=== PATIENT | female | born 1990 ===

== ENCOUNTER 2020-06-12 01:20 | Inpatient (IN) | payer MEDICAID ==
[2020-06-12] MEDS ORDERED: Morphine PF 10 MG/10 ML SDV ONE (03:06)
[2020-06-12] MEDS ORDERED: Oxytocin 10 Units/1 ML SDV ONE (03:08)
--- NOTE | 2020-06-12 03:10 | US ---
INDICATION: Vaginal bleeding TECHNIQUE: Ultrasound OB pelvis transabdominal. Real-time suazo-scale imaging of the fetus was performed. COMPARISON: 05/12/2020 FINDINGS: Sonographic imaging demonstrates a single intrauterine gestation. heart rate: 149 bpm Orientation: Cephalic Placenta: Fundal without evidence of placenta previa or abruption on submitted images Amniotic fluid: Subjectively normal with single deepest pocket (SDP) free 0.5 cm Cervix: 4.8 cm in length The composite ultrasound gestational age is calculated at 37 weeks, 1 day. The estimated weight is 3163 +/-462 grams which lies at the 64%. There is adequate diastolic blood flow within the umbilical artery. Biparietal diameter: 9.1 cm Head circumference: 32.6 cm Abdominal circumference: 33 point cm Femur length: 7.5 cm IMPRESSION: 1. Single viable intrauterine with an estimated gestational age of 37 weeks, 1 day. Dictated by Ghulam Cordero MD @ 06/12/2020 3:09:37 AM Dictated by: Ghulam Cordero MD @ 06/12/2020 03:09:43 (Electronically Signed)
[2020-06-12] MEDS ORDERED: Citric Acid/Sodium Citrate Solution 30 ML Cup PO ONE (03:14)
[2020-06-12] MEDS ORDERED: Sodium Chloride 0.9% 2.5 ML Syringe FLUSH PRN (03:14)
[2020-06-12] MEDS ORDERED: Sodium Chloride 0.9% 10 ML Syringe FLUSH PRN (03:14)
[2020-06-12] MEDS ORDERED: Sodium Chloride 0.9% 10 ML SDV IV PRN (03:14)
[2020-06-12] MEDS ORDERED: Oxytocin/0.9 % Sodium Chloride 30 UNIT/500 ML BAG IV SCH (03:15)
[2020-06-12] MEDS ORDERED: Lactated Ringers 1,000 ML IV SCH ×2 (03:15→03:30)
--- NOTE | 2020-06-12 03:19 | PCM.LDHP ---
L&D History of Present Illness - General Date of Service: 06/12/20 Admit Problem/Dx: Patient Status Order with Admit Dx/Problem 06/12/20 01:30 Patient Status [ADT] Routine Admission Diagnosis/Problem Admission Diagnosis/Problem Source of Information: Patient History Limitations: Reports: No Limitations - History of Present Illness Improves with: Reports: None Worsens with: Reports: None Associated Symptoms: Reports: N - Related Data Allergies/Adverse Reactions: Allergies Allergy/AdvReac Type Severity Reaction Status Date / Time latex Allergy Rash Verified 05/31/20 22:45 Lactated Ringers Allergy Anaphylactic Uncoded 05/10/20 07:42 Shock Past Medical History HEENT History: Reports: None Cardiovascular History: Reports: None Respiratory History: Reports: None Gastrointestinal History: Reports: None Genitourinary History: Reports: None 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: 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: Other OB/BYN History: Patient states she has PCOS Musculoskeletal History: Reports: None Neurological History: Reports: None Psychiatric History: Reports: None Endocrine/Metabolic History: Reports: None Hematologic History: Reports: None Immunologic History: Reports: None Oncologic (Cancer) History: Reports: None Dermatologic History: Reports: None - Infectious Disease History Infectious Disease History: Reports: None - Past Surgical History Head Surgeries/Procedures: Reports: None HEENT Surgical History: Reports: None Other HEENT Surgeries/Procedures: Pt states she has chronic tonsilitis Cardiovascular Surgical History: Reports: None Respiratory Surgical History: Reports: None GI Surgical History: Reports: None Endocrine Surgical History: Reports: None Neurological Surgical History: Reports: None Musculoskeletal Surgical History: Reports: None Oncologic Surgical History: Reports: None Dermatological Surgical History: Reports: None Social & Family History - Family History : Reports: Other (See Below) Other Family History: Mother had kidney transplant OBGYN: Reports: Endocrine/Metabolic: Reports: Diabetes, Type I - Tobacco Use Tobacco Use Status *Q: Never Tobacco User Second Hand Smoke Exposure: No - Caffeine Use Caffeine Use: Reports: Soda, Tea - Recreational Drug Use Recreational Drug Use: No H&P Review of Systems - Review of Systems: Review Of Systems: See Below General: Reports: No Symptoms HEENT: Reports: No Symptoms Pulmonary: Reports: No Symptoms Cardiovascular: Reports: No Symptoms Gastrointestinal: Reports: No Symptoms Genitourinary: Reports: No Symptoms Musculoskeletal: Reports: No Symptoms Skin: Reports: No Symptoms Psychiatric: Reports: No Symptoms Neurological: Reports: No Symptoms Hematologic/Lymphatic: Reports: No Symptoms Immunologic: Reports: No Symptoms L&D Exam - Exam Exam: See Below - Vital Signs Weight: 203 kg - OB Specific Contraction Intensity: Moderate Movement: Active Heart Tones: Present Presentation: Vertex - Mahmood Score Mahmood Score Cervix Position: Midposition Mahmood Score Consistency: Soft Mahmood Score Effacement: 31-50% Mahmood Score Dilation: 1-2 cm Mahmood Score 's Station: -3 Mahmood Score Total: 5 - Exam General: Alert, Oriented HEENT: PERRLA, Conjunctiva Clear, EACs Clear, EOMI, Hearing Intact, Mucosa Moist & [place], Nares Patent, Normal Nasal Septum, Posterior Pharynx Clear, TMs Clear Neck: Supple, Trachea Midline Lungs: Clear to Auscultation, Normal Respiratory Effort Cardiovascular: Regular Rate, Regular Rhythm GI/Abdominal Exam: Normal Bowel Sounds, Soft, Non-Tender, No Organomegaly, No Distention, No Abnormal Bruit, No Mass, Pelvis Stable Rectal Exam: Normal Exam, Normal Rectal Tone Genitourinary: Normal external exam, Normal bimanual exam, Normal speculum exam Back Exam: Normal Inspection, Full Range of Motion Extremities: Normal Inspection, Normal Range of Motion, Non-Tender, No Pedal Edema, Normal Capillary Refill Skin: Warm, Dry, Intact Neurological: Cranial Nerves Intact, Reflexes Equal Bilateral Psychiatric: Alert, Normal Affect, Normal Mood - Patient Data Lab Results Last 24 hrs: Laboratory Results - last 24 hr 06/12/20 06/12/20 Range/Units 01:17 01:17 WBC 16.73 H (4.0-11.0) K/uL RBC 4.63 (4.30-5.90) M/uL Hgb 14.0 (12.0-16.0) g/dL Hct 41.0 (36.0-46.0) % MCV 88.6 (80.0-98.0) fL MCH 30.2 (27.0-32.0) pg MCHC 34.1 (31.0-37.0) g/dL RDW Std Deviation 45.7 (28.0-62.0) fl RDW Coeff of Jayme 14 (11.0-15.0) % Plt Count 268 (150-400) K/uL MPV 12.60 H (7.40-12.00) fL Nucleated RBC % 0.0 /100WBC Nucleated RBCs # 0 K/uL Blood Type O POSITIVE Antibody Screen NEGATIVE Result Diagrams: 06/12/20 01:17 Problem List Initiated/Reviewed/Updated: Yes Orders Last 24hrs: Active Orders 24 hr Category Date Time Status Patient Status [ADT] Routine ADT 06/12/20 01:30 Active Non Stress Test [RC] PER UNIT ROUTINE Care 06/12/20 01:30 Active Up ad Lainey [RC] ASDIRECTED Care 06/12/20 01:30 Active Vaginal Exam [RC] Click to Edit Care 06/12/20 01:30 Active Vital Signs [RC] PER UNIT ROUTINE Care 06/12/20 01:30 Active CORONAVIRUS COVID-19 DOMINIQUE [MOLEC] Stat Lab 06/12/20 01:42 Ordered RPR (SYPHILIS SERO) W/ RFLX [REF] Stat Lab 06/12/20 01:42 Ordered Resuscitation Status Routine Resus Stat 06/12/20 01:30 Ordered Assessment/Plan Comment:: IUP36+6 P0000 #rd trimester bleeding. Clinicaly consistent with abruption of the Placenta. will do C/section.
[2020-06-12] MEDS ORDERED: Methylergonovine 0.2 MG/1 ML Amp IM PRN (03:21)
[2020-06-12] MEDS ORDERED: Oxytocin 10 Units/1 ML SDV IM PRN (03:21)
[2020-06-12] MEDS ORDERED: Misoprostol 200 MCG Tab RECTAL PRN (03:21)
[2020-06-12] MEDS ORDERED: Lanolin 100% Cream 7 GM Tube TOP PRN (03:21)
[2020-06-12] MEDS ORDERED: Ondansetron 4 MG/2 ML SDV IVPUSH PRN (03:21)
[2020-06-12] MEDS ORDERED: diphenhydrAMINE 50 MG/ML SDV IVPUSH PRN (03:21)
[2020-06-12] MEDS ORDERED: Bisacodyl 10 MG Supp RECTAL PRN (03:21)
[2020-06-12] MEDS ORDERED: Tranexamic Acid 1,000 MG in Sodium Chloride 0.9% 100 ML IV PRN (03:21)
[2020-06-12] MEDS ORDERED: Sodium Chloride 0.9% 1,000 ML IV ONE (03:27)
[2020-06-12] MEDS ORDERED: Ondansetron 4 MG/2 ML SDV ONE (03:27)
--- NOTE | 2020-06-12 04:10 | PCM.PREANE ---
Preanesthetic Assessment - Anesthesia/Transfusion/Family Hx Anesthesia History: No Prior Anesthesia Family History of Anesthesia Reaction: No Transfusion History: No Prior Transfusion(s) - Review of Systems General: No Symptoms Pulmonary: No Symptoms Cardiovascular: No Symptoms Gastrointestinal: No Symptoms Neurological: No Symptoms - Physical Assessment NPO Status Date: 06/12/20 Height: 5 ft 6 in Weight: 203 kg ASA Class: 3E Mental Status: Alert & Oriented x3 Airway Class: Mallampati = 2 Dentition: Reports: Normal Dentition ROM/Head Extension: Full Lungs: Clear to Auscultation, Normal Respiratory Effort Cardiovascular: Regular Rate, Regular Rhythm - Lab Values: Laboratory Last Values WBC 16.73 K/uL (4.0-11.0) H 06/12/20 01:17 RBC 4.63 M/uL (4.30-5.90) 06/12/20 01:17 Hgb 14.0 g/dL (12.0-16.0) 06/12/20 01:17 Hct 41.0 % (36.0-46.0) 06/12/20 01:17 MCV 88.6 fL (80.0-98.0) 06/12/20 01:17 MCH 30.2 pg (27.0-32.0) 06/12/20 01:17 MCHC 34.1 g/dL (31.0-37.0) 06/12/20 01:17 RDW Std Deviation 45.7 fl (28.0-62.0) 06/12/20 01:17 RDW Coeff of Jayme 14 % (11.0-15.0) 06/12/20 01:17 Plt Count 268 K/uL (150-400) 06/12/20 01:17 MPV 12.60 fL (7.40-12.00) H 06/12/20 01:17 Nucleated RBC % 0.0 /100WBC 06/12/20 01:17 Nucleated RBCs # 0 K/uL 06/12/20 01:17 SARS-CoV-2 RNA (DOMINIQUE) NEGATIVE (NEGATIVE) 06/12/20 01:40 Blood Type O POSITIVE 06/12/20 01:17 Antibody Screen NEGATIVE 06/12/20 01:17 - Allergies Allergies/Adverse Reactions: Allergies Allergy/AdvReac Type Severity Reaction Status Date / Time latex Allergy Rash Verified 05/31/20 22:45 Lactated Ringers Allergy Anaphylactic Uncoded 05/10/20 07:42 Shock - Blood Blood Available: Yes - Anesthesia Plan Pre-Op Medication Ordered: None - Acknowledgements Anesthesia Type Planned: Spinal Pt an Appropriate Candidate for the Planned Anesthesia: Yes Alternatives and Risks of Anesthesia Discussed w Pt/Guardian: Yes Pt/Guardian Understands and Agrees with Anesthesia Plan: Yes Additional Comments: hiddenclinical dx of abruption following fall earlier today. 37 weeks, no distress. 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: Other OB/BYN History: Patient states she has PCOS Musculoskeletal History: Reports: None Neurological History: Reports: None Psychiatric History: Reports: None Endocrine/Metabolic History: Reports: None Hematologic History: Reports: None Immunologic History: Reports: None Oncologic (Cancer) History: Reports: None Dermatologic History: Reports: None - Infectious Disease History Infectious Disease History: Reports: None - Past Surgical History Head Surgeries/Procedures: Reports: None HEENT Surgical History: Reports: None Other HEENT Surgeries/Procedures: Pt states she has chronic tonsilitis Cardiovascular Surgical History: Reports: None Respiratory Surgical History: Reports: None GI Surgical History: Reports: None Endocrine Surgical History: Reports: None Neurological Surgical History: Reports: None Musculoskeletal Surgical History: Reports: None Oncologic Surgical History: Reports: None Dermatological Surgical History: Reports: None - SUBSTANCE USE Tobacco Use Status *Q: Never Tobacco User Tobacco Use Within Last Twelve Months: No Second Hand Smoke Exposure: No Recreational Drug Use History: No - CURRENT (IN HOUSE) MEDS Current Meds: Current Medications Bisacodyl (Dulcolax) 10 mg RECTAL ONETIME PRN PRN Reason: Constipation Diphenhydramine HCl (Benadryl) 25 mg IVPUSH Q6H PRN PRN Reason: Itching or Nausea Docusate Sodium (Colace) 100 mg PO BID [facility] Emollient Ointment (Lansinoh Hpa) 0 gm TOP ASDIRECTED PRN PRN Reason: Sore Nipples Oxytocin/Sodium Chloride (Oxytocin 30 Unit/500 Ml-Ns) 30 unit in 500 mls @ 250 mls/hr IV TITRATE [facility] Tranexamic Acid 1,000 mg/ (Sodium Chloride) 110 mls @ 660 mls/hr IV ONETIME PRN PRN Reason: Bleeding Sodium Chloride (Normal Saline) 1,000 mls @ 999 mls/hr IV .Bolus ONE Stop: 06/12/20 04:27 Ibuprofen (Motrin) 800 mg PO Q8H PRN PRN Reason: mild pain or fever Ketorolac Tromethamine (Toradol) 30 mg IVPUSH Q6H [facility] Stop: 06/13/20 03:31 Methylergonovine Maleate (Methergine) 0.2 mg IM ONETIME PRN PRN Reason: Excessive Vaginal Bleeding Misoprostol (Cytotec) 1,000 mcg RECTAL ONETIME PRN PRN Reason: excessive bleeding Ondansetron HCl (Zofran) 4 mg IVPUSH Q4H PRN PRN Reason: Nausea/Vomiting Oxycodone/Acetaminophen (Percocet 325-5 Mg) 1 tab PO Q4H PRN PRN Reason: Pain (moderate 4-6) Oxycodone/Acetaminophen (Percocet 325-5 Mg) 2 tab PO Q4H PRN PRN Reason: Pain (moderate 4-6) Oxytocin (Pitocin) 10 unit IM ASDIRECTED PRN PRN Reason: Excessive Vaginal Bleeding Sodium Chloride (Saline Flush) 10 ml FLUSH ASDIRECTED PRN PRN Reason: Keep Vein Open Sodium Chloride (Saline Flush) 2.5 ml FLUSH ASDIRECTED PRN PRN Reason: Keep Vein Open Sodium Chloride (Normal Saline) 10 ml IV ASDIRECTED PRN PRN Reason: IV Use Discontinued Medications Citric Acid/Sodium Citrate (Bicitra Solution) 30 ml PO ONETIME ONE Stop: 06/12/20 03:15 Lactated Ringer's (Ringers, Lactated) 1,000 mls @ 125 mls/hr IV ASDIRECTED [facility] Morphine Sulfate (Duramorph Pf) Confirm Administered Dose 10 mg .ROUTE .STK-MED ONE Stop: 06/12/20 03:07 Ondansetron HCl (Zofran) Confirm Administered Dose 4 mg .ROUTE .STK-MED ONE Stop: 06/12/20 03:28 Oxytocin (Pitocin) Confirm Administered Dose 30 unit .ROUTE .STK-MED ONE Stop: 06/12/20 03:09
[2020-06-12] MEDS ORDERED: fentaNYL 100 MCG/2 ML SDV IVPUSH PRN (04:11)
[2020-06-12] MEDS ORDERED: Acetaminophen/oxyCODONE 325-5 MG Tab PO PRN (04:11)
--- NOTE | 2020-06-12 04:38 | PCM.OPNOTE ---
- General Post-Op/Procedure Note Date of Surgery/Procedure: 06/12/20 Operative Procedure(s): Primary C/section. Pre Op Diagnosis: [id number] 3rd trimester bleeding possible abroption. Post-Op Diagnosis: Same Anesthesia Technique: Spinal Primary Surgeon: Parker Barron EBL in mLs: 700 Complications: None Condition: Good
[2020-06-12] MEDS: Ketorolac 30 MG/ML SDV IVPUSH SCH ×3 (05:30→18:59)
--- NOTE | 2020-06-12 05:40 | PCM.POSTAN ---
POST ANESTHESIA ASSESSMENT - MENTAL STATUS Mental Status: Alert, Oriented - VITAL SIGNS Vital Signs: BP-95/65, HR-84, RR-20, T-97.5 Spo2-98% - RESPIRATORY Respiratory Status: Respiratory Rate WNL, Airway Patent, O2 Saturation Stable - CARDIOVASCULAR CV Status: Pulse Rate WNL, Blood Pressure Stable - GASTROINTESTINAL GI Status: No Symptoms - PAIN Pain Score: 7 Free Text/Narrative:: Reports a pain level of 7/10 at her incision. Pt. recently received toradol and had duramorph in her spinal - POST OP HYDRATION Hydration Status: Adequate & Stable
[2020-06-12] MEDS: Nalbuphine 10 MG/1 ML Vial IVPUSH PRN ×2 (05:44→14:18)
[2020-06-12] MEDS ORDERED: Sodium Chloride 0.9% 1,000 ML IV SCH (06:00)
--- NOTE | 2020-06-12 07:37 | OR ---
SURGEON: Parker Barron MD DATE OF PROCEDURE: 06/12/2020 PREOPERATIVE DIAGNOSES: Intrauterine at 37 weeks, third trimester bleeding, possible abruption. POSTOPERATIVE DIAGNOSES: Intrauterine at 37 weeks, third trimester bleeding, possible abruption. OPERATION PERFORMED: A primary low transverse section. PRIMARY SURGEON: Parker Barron MD STUDENT ADMISSIONS CLERK: OB nurse, Rj Nguyen RN. ANESTHESIA: Spinal. ESTIMATED BLOOD LOSS: 700 mL. COMPLICATION: None. FAN BALANCER: Jazmin Prieto MD. FINDING: Male fetus cried immediately. scores reported to be 8 and 9. The weight is not available at the time of the dictation. The placenta shows some sign of abruption and the placenta sent for pathology. INDICATION FOR SURGERY: This patient is 29 years old. She is primigravida. She is followed in our clinic primarily by me. She is 37 weeks. She presented today to Labor and Delivery with vaginal bleeding, abdominal pain, and intense contraction. The patient had an ultrasound. We know that she did not have previa. However, the ultrasound was not conclusive for abruption, but clinically the patient has continued to bleed. She had flattening and loss of variability of heart rate indicative of strong possibility of abruption. She was only dilated 1 cm. She is GBS positive. Based on these findings, decision is made to do primary low transverse section. DESCRIPTION OF PROCEDURE: The patient brought to the OR, properly identified, and after adequate spinal anesthesia, the patient prepped and draped in sterile fashion as usual. Low transverse Pfannenstiel skin incision done. Gypsy fascia and rectus fascia were opened in direction of the incision. The 2 recti muscles . Peritoneal cavity was entered. Bladder flap was raised in the usual manner pushing the bladder away from the lower uterine segment. Low transverse uterine incision was done. Extended manually with hand. Fetus was in vertex position, delivered without any problem. Placenta was posterior, delivered, and sent for histopathology. Repair of the lower uterine segment done with 2-0 Vicryl continuous interlocking in 2 layers, and then reperitonealization done with 3-0 Vicryl continuous. Then, the peritoneal cavity evacuated completely from all blood and blood clot. The peritoneal cavity closed with 3-0 Vicryl continuous and the rectus fascia with #1 PDS continuous, the Gypsy fascia with 3-0 Vicryl continuous, and then skin closed with 3-0 Vicryl on a [place] needle in a subcuticular fashion and Dermabond. Instrument and sponge count was correct. The patient tolerated the procedure well, went to recovery room in stable general condition. LARS MITCHELL /[id number]
[2020-06-12] MEDS: Docusate Sodium 100 MG Cap PO SCH ×2 (09:40→20:32)
[2020-06-12] MEDS ORDERED: Octyl 2-Cyanoacrylate 1 Tube ONE (11:32)
[2020-06-13] MEDS: Ketorolac 30 MG/ML SDV IVPUSH SCH ×2 (00:58→06:58)
--- NOTE | 2020-06-13 05:32 | PCM.PNPP ---
- General Info Date of Service: 06/13/20 Admission Dx/Problem (Free Text): Patient Status Order with Admit Dx/Problem 06/12/20 01:30 Patient Status [ADT] Routine Admission Diagnosis/Problem Admission Diagnosis/Problem Leo is a 19 yo s/p primary LTCS at 37+0 weeks d/t placental abruption without imminent delivery. Patient reports she is doing well today; denies C/O fever, chills, sweating, cough, SOB, or any other problems or concerns today. NBM was transferred last night due to apneic episodes, but patient reports he is doing well today. Patient continues to pump, discussed pumped for 15-30 minutes every 2-4 hours if she desires to do so. Patient independently ambulating, eating, hydrating. Martinez catheter urine clear, discontinued ~5 am today; has not yet voided. Moderate surgical incision pain controlled with Shruti dol IV x24 hours. Patient expresses desire to be discharged today. H/H pending. No significant problems. Functional Status: Reports: Pain Controlled, Tolerating Diet, Ambulating - Review of Systems General: Reports: No Symptoms HEENT: Reports: No Symptoms Pulmonary: Reports: No Symptoms Cardiovascular: Reports: No Symptoms Gastrointestinal: Reports: No Symptoms Genitourinary: Reports: No Symptoms Musculoskeletal: Reports: No Symptoms Skin: Reports: No Symptoms Neurological: Reports: No Symptoms Psychiatric: Reports: No Symptoms - General Info Date of Service: 06/13/20 - Patient Data Vital Signs - Most Recent: Last Vital Signs Temp 98.0 F 06/13/20 04:12 Pulse 76 06/13/20 05:00 Resp 16 06/13/20 05:00 BP 91/55 L 06/13/20 04:12 Pulse Ox 98 06/13/20 05:00 Weight - Most Recent: 447 lb 8.614 oz I&O - Last 24 Hours: Intake & Output 06/12/20 06/12/20 06/13/20 14:59 22:59 06:59 Output Total 200 2300 850 Balance -200 -2300 -850 Med Orders - Current: Current Medications Bisacodyl (Dulcolax) 10 mg RECTAL ONETIME PRN PRN Reason: Constipation Diphenhydramine HCl (Benadryl) 25 mg IVPUSH Q6H PRN PRN Reason: Itching or Nausea Docusate Sodium (Colace) 100 mg PO BID [facility] Last Admin: 06/12/20 20:32 Dose: 100 mg Documented by: Emollient Ointment (Lansinoh Hpa) 0 gm TOP ASDIRECTED PRN PRN Reason: Sore Nipples Oxytocin/Sodium Chloride (Oxytocin 30 Unit/500 Ml-Ns) 30 unit in 500 mls @ 250 mls/hr IV TITRATE [facility] Tranexamic Acid 1,000 mg/ (Sodium Chloride) 110 mls @ 660 mls/hr IV ONETIME PRN PRN Reason: Bleeding Sodium Chloride (Normal Saline) 1,000 mls @ 150 mls/hr IV ASDIRECTED [facility] Ibuprofen (Motrin) 800 mg PO Q8H PRN PRN Reason: mild pain or fever Methylergonovine Maleate (Methergine) 0.2 mg IM ONETIME PRN PRN Reason: Excessive Vaginal Bleeding Misoprostol (Cytotec) 1,000 mcg RECTAL ONETIME PRN PRN Reason: excessive bleeding Ondansetron HCl (Zofran) 4 mg IVPUSH Q4H PRN PRN Reason: Nausea/Vomiting Oxycodone/Acetaminophen (Percocet 325-5 Mg) 1 tab PO Q4H PRN PRN Reason: Pain (moderate 4-6) Oxycodone/Acetaminophen (Percocet 325-5 Mg) 2 tab PO Q4H PRN PRN Reason: Pain (moderate 4-6) Oxycodone/Acetaminophen (Percocet 325-5 Mg) 1 tab PO ONETIME PRN PRN Reason: Pain (moderate 4-6) Oxytocin (Pitocin) 10 unit IM ASDIRECTED PRN PRN Reason: Excessive Vaginal Bleeding Sodium Chloride (Saline Flush) 10 ml FLUSH ASDIRECTED PRN PRN Reason: Keep Vein Open Sodium Chloride (Saline Flush) 2.5 ml FLUSH ASDIRECTED PRN PRN Reason: Keep Vein Open Sodium Chloride (Normal Saline) 10 ml IV ASDIRECTED PRN PRN Reason: IV Use Discontinued Medications Citric Acid/Sodium Citrate (Bicitra Solution) 30 ml PO ONETIME ONE Stop: 06/12/20 03:15 Fentanyl (Sublimaze) 50 mcg IVPUSH Q5M PRN PRN Reason: Pain (severe 7-10) Stop: 06/13/20 04:11 Lactated Ringer's (Ringers, Lactated) 1,000 mls @ 125 mls/hr IV ASDIRECTED [facility] Sodium Chloride (Normal Saline) 1,000 mls @ 999 mls/hr IV .Bolus ONE Stop: 06/12/20 04:27 Ketorolac Tromethamine (Toradol) 30 mg IVPUSH Q6H [facility] Stop: 06/13/20 05:01 Last Admin: 06/13/20 00:58 Dose: 30 mg Documented by: Morphine Sulfate (Duramorph Pf) Confirm Administered Dose 10 mg .ROUTE .STK-MED ONE Stop: 06/12/20 03:07 Nalbuphine HCl (Nubain) 2.5 mg IVPUSH Q3H PRN PRN Reason: Pruritis Stop: 06/13/20 04:11 Last Admin: 06/12/20 14:18 Dose: 2.5 mg Documented by: Octyl Cyanoacrylate (Dermabond Advance) Confirm Administered Dose 1 applic .ROUTE .STK-MED ONE Stop: 06/12/20 11:33 Ondansetron HCl (Zofran) Confirm Administered Dose 4 mg .ROUTE .STK-MED ONE Stop: 06/12/20 03:28 Oxytocin (Pitocin) Confirm Administered Dose 30 unit .ROUTE .STK-MED ONE Stop: 06/12/20 03:09 - Interaction Disposition, : Not Applicable Infant Interaction: Not Applicable Infant Feeding: Other (see below) (Exclusively pumping) Support Person: - Recovery Exam Fundal Tone: Firm Fundal Level: 2 Fingerbreadths Below Umbilicus Fundal Placement: Midline Lochia Amount: Small Lochia Color: Rubra/Red Perineum Description: Intact, Minimal Bruising/Swelling Episiotomy/Laceration: None Bladder Status: Nonpalpable Urinary Elimination: Not Voiding, Other (see below) Other Urinary Elimination, : Martinez D/Cd at 0425 - Exam General: Alert, Oriented, Cooperative, No Acute Distress HEENT: Pupils Equal, Mucous Membr. Moist/Pillow Neck: Supple Lungs: Clear to Auscultation, Normal Respiratory Effort Cardiovascular: Regular Rate, Regular Rhythm GI/Abdominal Exam: Normal Bowel Sounds, Soft, Non-Tender, No Organomegaly, No Distention, No Abnormal Bruit, No Mass, Pelvis Stable Extremities: Normal Inspection, Normal Range of Motion, Non-Tender, No Pedal Edema, Normal Capillary Refill Skin: Warm, Dry, Intact Wound/Incisions: Dressing Dry and Intact (Post-op dressing clean, dry, intact.) Neurological: No New Focal Deficit Psy/Mental Status: Alert, Normal Affect, Normal Mood - Problem List & Annotations (1) Status post primary low transverse section SNOMED Code(s): 194913704, [id number], [id number], [id number], [id number] Code(s): Z98.891 - HISTORY OF UTERINE SCAR FROM PREVIOUS SURGERY Status: Acute Priority: High Current Visit: Yes - Problem List Review Problem List Initiated/Reviewed/Updated: Yes - Plan Plan:: Continue with POC s/p primary LTCS of viable NBM following placental abruption. Martinez D/Cd, if patient has not voided within 6 hours S/P D/C, plan to notify provider. Plan to ambulate 3-5 times today. Continue to eat, hydrate, and pump independently. Plan to initiate PO analgesia today. H/H collection pending. Dr. Barron notified and agreeable with POC.
--- NOTE | 2020-06-13 07:28 | PCM48HPAN ---
Post Anesthesia Note - EVALUATION WITHIN 48HRS OF ANESTHETIC Vital Signs in Normal Range: Yes Patient Participated in Evaluation: Yes Respiratory Function Stable: Yes Airway Patent: Yes Cardiovascular Function Stable: Yes Hydration Status Stable: Yes Pain Control Satisfactory: Yes Nausea and Vomiting Control Satisfactory: Yes Mental Status Recovered: Yes Vital Signs: Last Vital Signs Temp 36.7 C 06/13/20 04:12 Pulse 76 06/13/20 05:00 Resp 16 06/13/20 05:00 BP 91/55 L 06/13/20 04:12 Pulse Ox 98 06/13/20 05:00
[2020-06-13] MEDS: Docusate Sodium 100 MG Cap PO SCH ×2 (08:38→20:32)
[2020-06-13] MEDS: Acetaminophen/oxyCODONE 325-5 MG Tab PO PRN ×3 (08:38→21:25)
[2020-06-13] MEDS: Ibuprofen 800 MG Tab PO PRN (13:44)
[2020-06-14] MEDS: Acetaminophen/oxyCODONE 325-5 MG Tab PO PRN ×2 (06:58→11:33)
[2020-06-14] MEDS: Docusate Sodium 100 MG Cap PO SCH (09:25)
[2020-06-14] MEDS: Ibuprofen 800 MG Tab PO PRN (09:25)
--- NOTE | 2020-06-14 11:44 | PCM.DCSUM1 ---
Discharge Summary - Hospital Course Free Text/Narrative:: Leo is a 29 yo PPD2 s/p primary LTCS at 37+0 weeks d/t placental abruption without imminent delivery. [facility]ne[facility] epidsodes, trasferred 1 day ago, patient reports he is doing well today. Patient continues to pumP breast milk for 15-30 minutes every 2-4 hours. Patient reports she is doing well today; denies C/O fever, chills, sweating, cough, SOB, or any other problems or concerns today. Patient independently ambulating, eating, hydrating, urinating. Moderate surgical incision pain controlled with PO analgesia. Hgb 10.9, asymptomatic, unremarkable. Incision dry, clean, approximated, dry dressing for comfort. Patient expresses desire to be discharged today. Diagnosis: Stroke: No - Discharge Data Discharge Date: 06/14/20 Discharge Disposition: Home, Self-Care 01 Condition: Good - Referral to Home Health Primary Care Physician: PCP None - Discharge Diagnosis/Problem(s) (1) Status post primary low transverse section SNOMED Code(s): 222467611, [id number], [id number], [id number], [id number] ICD Code: Z98.891 - HISTORY OF UTERINE SCAR FROM PREVIOUS SURGERY Status: Acute Priority: High Current Visit: Yes - Patient Summary/Data Operative Procedure(s) Performed: Primary C/section. - Patient Instructions Diet: Usual Diet as Tolerated, Regular Diet as Tolerated, Drink 8-10+ Glasses/Day Activity: As Tolerated, No Strenuous Activities, Rest and Relax Today Driving: May Drive Today Showering/Bathing: May Shower Wound/Incision Care: Keep Operative Site/Wound Site Clean and Dry Wound/Incision, Other: Cleanse incision site with Dial antibacterial soap and warm water daily Notify Provider of: Fever, Increased Pain, Swelling and Redness, Drainage, Nausea and/or Vomiting - Discharge Plan *PRESCRIPTION DRUG MONITORING PROGRAM REVIEWED*: No *COPY OF PRESCRIPTION DRUG MONITORING REPORT IN PATIENT RAKESH: No Prescriptions/Med Rec: Docusate Sodium [Colace] 100 mg PO BID #60 cap Ibuprofen [Motrin] 800 mg PO Q8H PRN #90 tablet PRN Reason: mild pain or fever Acetaminophen/oxyCODONE [Percocet 325-5 MG] 1 - 2 tab PO Q4H PRN #30 tablet PRN Reason: Pain Home Medications: Home Meds Acetaminophen/oxyCODONE [Percocet 325-5 MG] 1 - 2 tab PO Q4H PRN #30 tablet 06/14/20 [Rx] Docusate Sodium [Colace] 100 mg PO BID #60 cap 06/14/20 [Rx] Ibuprofen [Motrin] 800 mg PO Q8H PRN #90 tablet 06/14/20 [Rx] Oxygen Therapy Mode: Room Air Patient Handouts: Your Premature or Sick Baby, and Self-Care, Care After Delivery, Breast Pumping Tips, [id number], Tips for a Good Latch, [id number] Referrals: [facility] [Outside] - 06/17/20 3:00 pm (Incision check appointment with Dr. Barron. You can bring your with you.) Parker Barron MD [Physician] - 07/20/20 9:30 am (6 week follow-up appointment with Dr. Barron. You can bring your with you.) - Discharge Summary/Plan Comment DC Time >30 min.: No Discharge Summary/Plan Comment: May discharge home today. RTO in 1 week for incision check. - General Info Date of Service: 06/14/20 Admission Dx/Problem (Free Text: Patient Status Order with Admit Dx/Problem 06/12/20 01:30 Patient Status [ADT] Routine Admission Diagnosis/Problem Admission Diagnosis/Problem Leo is a 19 yo s/p primary LTCS at 37+0 weeks d/t placental abruption without imminent delivery. Patient reports she is doing well today; denies C/O fever, chills, sweating, cough, SOB, or any other problems or concerns today. NBM was transferred last night due to apneic episodes, but patient reports he is doing well today. Patient continues to pump, discussed pumped for 15-30 minutes every 2-4 hours if she desires to do so. Patient independently ambulating, eating, hydrating. Martinez catheter urine clear, discontinued ~5 am today; has not yet voided. Moderate surgical incision pain controlled with Toradol IV x24 hours. Patient expresses desire to be discharged today. H/H pending. No significant problems. Functional Status: Reports: Pain Controlled, Tolerating Diet, Ambulating, Urinating - Review of Systems General: Reports: No Symptoms HEENT: Reports: No Symptoms Pulmonary: Reports: No Symptoms Cardiovascular: Reports: No Symptoms Gastrointestinal: Reports: No Symptoms Genitourinary: Reports: No Symptoms Musculoskeletal: Reports: No Symptoms Skin: Reports: No Symptoms Neurological: Reports: No Symptoms Psychiatric: Reports: No Symptoms - Patient Data Vitals - Most Recent: Last Vital Signs Temp 98.8 F 06/14/20 08:00 Pulse 78 06/14/20 08:00 Resp 16 06/14/20 08:00 BP 105/68 06/14/20 08:00 Pulse Ox 95 06/14/20 08:00 Weight - Most Recent: 447 lb 8.614 oz Med Orders - Current: Current Medications Bisacodyl (Dulcolax) 10 mg RECTAL ONETIME PRN PRN Reason: Constipation Diphenhydramine HCl (Benadryl) 25 mg IVPUSH Q6H PRN PRN Reason: Itching or Nausea Docusate Sodium (Colace) 100 mg PO BID [facility] Last Admin: 06/14/20 09:25 Dose: 100 mg Documented by: Emollient Ointment (Lansinoh Hpa) 0 gm TOP ASDIRECTED PRN PRN Reason: Sore Nipples Tranexamic Acid 1,000 mg/ (Sodium Chloride) 110 mls @ 660 mls/hr IV ONETIME PRN PRN Reason: Bleeding Sodium Chloride (Normal Saline) 1,000 mls @ 150 mls/hr IV ASDIRECTED PUNEET Ibuprofen (Motrin) 800 mg PO Q8H PRN PRN Reason: mild pain or fever Last Admin: 06/14/20 09:25 Dose: 800 mg Documented by: Methylergonovine Maleate (Methergine) 0.2 mg IM ONETIME PRN PRN Reason: Excessive Vaginal Bleeding Misoprostol (Cytotec) 1,000 mcg RECTAL ONETIME PRN PRN Reason: excessive bleeding Ondansetron HCl (Zofran) 4 mg IVPUSH Q4H PRN PRN Reason: Nausea/Vomiting Oxycodone/Acetaminophen (Percocet 325-5 Mg) 1 tab PO Q4H PRN PRN Reason: Pain (moderate 4-6) Last Admin: 06/14/20 06:58 Dose: 1 tab Documented by: Oxycodone/Acetaminophen (Percocet 325-5 Mg) 2 tab PO Q4H PRN PRN Reason: Pain (moderate 4-6) Last Admin: 06/13/20 21:25 Dose: 2 tab Documented by: Oxycodone/Acetaminophen (Percocet 325-5 Mg) 1 tab PO ONETIME PRN PRN Reason: Pain (moderate 4-6) Oxytocin (Pitocin) 10 unit IM ASDIRECTED PRN PRN Reason: Excessive Vaginal Bleeding Sodium Chloride (Saline Flush) 10 ml FLUSH ASDIRECTED PRN PRN Reason: Keep Vein Open Sodium Chloride (Saline Flush) 2.5 ml FLUSH ASDIRECTED PRN PRN Reason: Keep Vein Open Sodium Chloride (Normal Saline) 10 ml IV ASDIRECTED PRN PRN Reason: IV Use Discontinued Medications Citric Acid/Sodium Citrate (Bicitra Solution) 30 ml PO ONETIME ONE Stop: 06/12/20 03:15 Fentanyl (Sublimaze) 50 mcg IVPUSH Q5M PRN PRN Reason: Pain (severe 7-10) Stop: 06/13/20 04:11 Oxytocin/Sodium Chloride (Oxytocin 30 Unit/500 Ml-Ns) 30 unit in 500 mls @ 250 mls/hr IV TITRATE PUNEET Lactated Ringer's (Ringers, Lactated) 1,000 mls @ 125 mls/hr IV ASDIRECTED PUNEET Sodium Chloride (Normal Saline) 1,000 mls @ 999 mls/hr IV .Bolus ONE Stop: 06/12/20 04:27 Ketorolac Tromethamine (Toradol) 30 mg IVPUSH Q6H [facility] Stop: 06/13/20 05:01 Last Admin: 06/13/20 06:58 Dose: 30 mg Documented by: Morphine Sulfate (Duramorph Pf) Confirm Administered Dose 10 mg .ROUTE .STK-MED ONE Stop: 06/12/20 03:07 Nalbuphine HCl (Nubain) 2.5 mg IVPUSH Q3H PRN PRN Reason: Pruritis Stop: 06/13/20 04:11 Last Admin: 06/12/20 14:18 Dose: 2.5 mg Documented by: Octyl Cyanoacrylate (Dermabond Advance) Confirm Administered Dose 1 applic .ROUTE .STK-MED ONE Stop: 06/12/20 11:33 Ondansetron HCl (Zofran) Confirm Administered Dose 4 mg .ROUTE .STK-MED ONE Stop: 06/12/20 03:28 Oxytocin (Pitocin) Confirm Administered Dose 30 unit .ROUTE .STK-MED ONE Stop: 06/12/20 03:09 - Exam General: Reports: Alert, Oriented, Cooperative, No Acute Distress HEENT: Reports: Pupils Equal, Mucous Membr. Moist/Admire Neck: Reports: Supple Lungs: Reports: Clear to Auscultation, Normal Respiratory Effort Cardiovascular: Reports: Regular Rate, Regular Rhythm GI/Abdominal Exam: Normal Bowel Sounds, Soft, Non-Tender, No Organomegaly, No Distention (Female) Exam: Normal External Exam, Enlarged Uterus ( uterus, firm U-1), Vaginal Bleeding (Small to moderate rubra lochia, no clots.) Rectal (Female) Exam: Deferred Back Exam: Reports: Normal Inspection, Full Range of Motion Extremities: Normal Inspection, Normal Range of Motion, Non-Tender, No Pedal Edema, Normal Capillary Refill Skin: Reports: Warm, Dry, Intact Wound/Incisions: Reports: No Drainage, Other (LTCS incision clean, dry, approximated.) Neurological: Reports: No New Focal Deficit Psy/Mental Status: Reports: Alert, Normal Affect, Normal Mood
== END 2020-06-14 15:07 | disposition home or self-care (01) | DRG 788 ==
LOC: MW.OBCHECK 01:20 → MW.OB 01:22 → MW.OBCHECK 03:13 → OBSVTOIN 03:14 → MW.OB 09:23
PROVIDERS: ADMIT Obstetrics & Gynecology; ATTEND Obstetrics & Gynecology
PROC: 10D00Z1 Extraction of Products of Conception, Low, Open Approach (ICD-10-PCS; principal; 2020-06-12)
DX: O45.93 Premature separation of placenta, unspecified, third trimester (principal); Z3A.37 37 weeks gestation of pregnancy; Z37.0 Single live birth; Z20.822 Contact with and (suspected) exposure to COVID-19
CPT/HCPCS: 01961; 36415; 59025; 76815; 76815-26; 85014; 85018; 85027; 86592; 86850; 86900; 86901; 88307; A9270-GY; J1885; J2270; J2300; J2405; J2590; U0002

== ENCOUNTER 2020-08-08 08:46 | Emergency (ER) | payer OTHER ==
--- NOTE | 2020-08-08 09:07 | EDM.PDOC ---
ED HPI GENERAL MEDICAL PROBLEM - General Chief Complaint: General Stated Complaint: RECTAL BLEEDING Time Seen by Provider: 08/08/20 08:47 - History of Present Illness INITIAL COMMENTS - FREE TEXT/NARRATIVE: 30-year-old female with history of iron deficiency anemia now 3 months status post emergent for placental abruption who is otherwise well who is presenting with burning anal pain associated with bright red blood on the outside of her bowel movement. She denies any severe pain no nausea no vomiting no fevers. No prior history of similar symptoms. Patient denies a prior history of constipation or hemorrhoids. No exacerbating relieving factors radiation or other associated symptoms. - Related Data Allergies Allergy/AdvReac Type Severity Reaction Status Date / Time latex Allergy Rash Verified 08/08/20 08:58 Lactated Ringers Allergy Anaphylactic Uncoded 08/08/20 08:58 Shock Home Meds: Home Meds Acetaminophen/oxyCODONE [Percocet 325-5 MG] 1 - 2 tab PO Q4H PRN #30 tablet 06/14/20 [Rx] Docusate Sodium [Colace] 100 mg PO BID #60 cap 06/14/20 [Rx] Ibuprofen [Motrin] 800 mg PO Q8H PRN #90 tablet 06/14/20 [Rx] Hydrocortisone [Anusol-HC] 30 gm RC BID 7 Days #1 cream..g. 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 QUILLER OPERATOR History: Patient states she has PCOS Musculoskeletal History: Reports: None Neurological History: Reports: None Psychiatric History: Reports: None Endocrine/Metabolic History: Reports: None Hematologic History: Reports: None Immunologic History: Reports: None Oncologic (Cancer) History: Reports: None Dermatologic History: Reports: None - Infectious Disease History Infectious Disease History: Reports: None - Past Surgical History Head Surgeries/Procedures: Reports: None HEENT Surgical History: Reports: None Other HEENT Surgeries/Procedures: Pt states she has chronic tonsilitis Cardiovascular Surgical History: Reports: None Respiratory Surgical History: Reports: None GI Surgical History: Reports: None Endocrine Surgical History: Reports: None Neurological Surgical History: Reports: None Musculoskeletal Surgical History: Reports: None Oncologic Surgical History: Reports: None Dermatological Surgical History: Reports: None Social & Family History - Family History : Reports: Other (See Below) Other Family History: Mother had kidney transplant OBGYN: Reports: Endocrine/Metabolic: Reports: Diabetes, Type I - Caffeine Use Caffeine Use: Reports: Soda, Tea ED ROS GENERAL - Review of Systems Review Of Systems: See Below Free Text/Narrative/Comment: General: No fever. Skin: No rash. Eyes: No vision problems. ENT: No sore throat. Neck: No neck stiffness. Respiratory: No shortness of breath. Cardiac: No chest pain. Gastrointestinal: Per HPI, ongoing issues with tenderness along her scar Urinary: No dysuria. Musculoskeletal: No myalgias/arthralgias. Neurologic: No headache. ED EXAM, GENERAL - Physical Exam Exam: See Below Free Text/Narrative:: General Appearance: No acute distress, appears comfortable Skin: No rash HEENT: Normocephalic/atraumatic, sclera anicteric, mucous membranes moist Neck: Normal range of motion Chest and Lungs: Bilateral breath sounds, clear to auscultation Cardiovascular: Regular rate and rhythm, no murmur Abdomen: Soft, non-tender Musculoskeletal: No edema or tenderness Neurologic: Awake, alert, no obvious deficits, moving all extremities Psychiatric: Appropriate, cooperative Course - Vital Signs Last Recorded V/S: Last Vital Signs Temp 97 F 08/08/20 08:52 Pulse 80 08/08/20 08:52 Resp 18 08/08/20 08:52 BP 123/64 08/08/20 08:52 Pulse Ox 96 08/08/20 08:52 Departure - Departure Time of Disposition: 09:23 Disposition: Home, Self-Care 01 Condition: Good Clinical Impression: Hemorrhoid - Discharge Information *PRESCRIPTION DRUG MONITORING PROGRAM REVIEWED*: Not Applicable *COPY OF PRESCRIPTION DRUG MONITORING REPORT IN PATIENT RAKESH: Not Applicable Prescriptions: Hydrocortisone [Anusol-HC] 30 gm RC BID 7 Days #1 cream..g. Referrals: Ashia London NP [Primary Care Provider] - Forms: ED Department Discharge Additional Instructions: Please apply the cream twice daily. Your symptoms should improve over the next several days. Please be sure to follow-up with your primary care doctor regarding your iron deficiency. The following information is given to patients seen in the emergency department who are being discharged to home. This information is to outline your options for follow-up care. We provide all patients seen in our emergency department with a follow-up referral. The need for follow-up, as well as the timing and circumstances, are variable depending upon the specifics of your emergency department visit. If you don't have a primary care physician on staff, we will provide you with a referral. We always advise you to contact your personal physician following an emergency department visit to inform them of the circumstance of the visit and for follow-up with them and/or the need for any referrals to a consulting specialist. The emergency department will also refer you to a specialist when appropriate. This referral assures that you have the opportunity for follow-up care with a specialist. All of these measure are taken in an effort to provide you with optimal care, which includes your follow-up. Under all circumstances we always encourage you to contact your private physician who remains a resource for coordinating your care. When calling for follow-up care, please make the office aware that this follow-up is from your recent emergency room visit. If for any reason you are refused follow-up, please contact the [facility] Emergency Department at and asked to speak to the emergency department charge nurse. Sepsis Event Note (ED) - Evaluation Sepsis Screening Result: No Definite Risk - Focused Exam Vital Signs: Vital Signs Temp Pulse Resp BP Pulse Ox 08/08/20 08:52 97 F 80 18 123/64 96 - Assessment/Plan Assessment:: 30-year-old female presenting with signs and symptoms that are most consistent with hemorrhoid related bleeding. Diverticulitis considered but no focal left lower quadrant tenderness on exam and there is an associated burning anal pain. Patient young without prior history of constipation diverticular bleeding felt unlikely. Rectal exam pending. If no clear evidence of hemorrhoids could consider additional work-up or imaging at that time. Given absence of pain anal fissure felt less likely. 0922: Patient's incision is well-healed. Patient states that her tenderness there is been present since the and is been gradually but steadily improving. On rectal exam patient has a very small external hemorrhoid with some discomfort with external exam no active bleeding. Is consistent with external hemorrhoids. Regarding her iron deficient anemia patient is already on iron supplements she has been instructed to continue these until she follows up again with her primary care doctor.
== END 2020-08-08 09:32 | disposition home or self-care (01) ==
LOC: MW.ED 08:46
DX: K64.9 Unspecified hemorrhoids (principal); Z91.040 Latex allergy status; Z88.8 Allergy status to other drugs, medicaments and biological substances; Z79.899 Other long term (current) drug therapy
CPT/HCPCS: 99282; 99283

== ENCOUNTER 2020-10-22 15:36 | Emergency (ER) | payer BC ==
--- NOTE | 2020-10-22 15:48 | EDM.PDOC ---
ED HPI GENERAL MEDICAL PROBLEM - General Stated Complaint: CP Time Seen by Provider: 10/22/20 15:43 Source of Information: Reports: Patient History Limitations: Reports: No Limitations ( ) - History of Present Illness INITIAL COMMENTS - FREE TEXT/NARRATIVE: 30-year-old female no past medical history presents for chest pain. Patient states that pain started a few days ago and went away after aspirin. She describes it as a anterior chest pressure. She states it happened again today and was initially sharp and stabbing but now a deep achy pain. It is worse with deep inspiration. She denies lower extremity swelling or pain but does note bruising of her lower extremities that she is not sure where it came from. No history of blood clots. No nausea or vomiting. chest Pain Score (Numeric/FACES): 8 - Related Data Allergies Allergy/AdvReac Type Severity Reaction Status Date / Time latex Allergy Rash Verified 10/22/20 15:52 Lactated Ringers Allergy Anaphylactic Uncoded 10/22/20 15:52 Shock Home Meds: Home Meds Acetaminophen/oxyCODONE [Percocet 325-5 MG] 1 - 2 tab PO Q4H PRN #30 tablet 06/14/20 [Rx] Docusate Sodium [Colace] 100 mg PO BID #60 cap 06/14/20 [Rx] Ibuprofen [Motrin] 800 mg PO Q8H PRN #90 tablet 06/14/20 [Rx] Hydrocortisone [Anusol-HC] 30 gm RC BID 7 Days #1 cream..g. 08/08/20 [Rx] Past Medical History HEENT History: Reports: None Cardiovascular History: Reports: None Respiratory History: Reports: None Gastrointestinal History: Reports: None Genitourinary History: Reports: None MANAGER OF CASE History: Reports: Other MANAGER OF CASE History: Patient states she has PCOS Musculoskeletal History: Reports: None Neurological History: Reports: None Psychiatric History: Reports: None Endocrine/Metabolic History: Reports: None Hematologic History: Reports: None Immunologic History: Reports: None Oncologic (Cancer) History: Reports: None Dermatologic History: Reports: None - Infectious Disease History Infectious Disease History: Reports: None - Past Surgical History Head Surgeries/Procedures: Reports: None HEENT Surgical History: Reports: None Other HEENT Surgeries/Procedures: Pt states she has chronic tonsilitis Cardiovascular Surgical History: Reports: None Respiratory Surgical History: Reports: None GI Surgical History: Reports: None Endocrine Surgical History: Reports: None Neurological Surgical History: Reports: None Musculoskeletal Surgical History: Reports: None Oncologic Surgical History: Reports: None Dermatological Surgical History: Reports: None Social & Family History - Family History Family Medical History: No Pertinent Family History : Reports: Other (See Below) Other Family History: Mother had kidney transplant OBGYN: Reports: Endocrine/Metabolic: Reports: Diabetes, Type I - Caffeine Use Caffeine Use: Reports: None ED ROS GENERAL - Review of Systems Review Of Systems: Comprehensive ROS is negative, except as noted in HPI. ED EXAM, GENERAL - Physical Exam Exam: See Below Exam Limited By: No Limitations General Appearance: Alert, WD/WN, No Apparent Distress Throat/Mouth: Normal Voice, No Airway Compromise Head: Atraumatic, Normocephalic Neck: Normal Inspection Respiratory/Chest: No Respiratory Distress, No Accessory Muscle Use Cardiovascular: Normal Peripheral Pulses, Regular Rate, Rhythm GI/Abdominal: Soft, Non-Tender Extremities: Normal Inspection Neurological: Alert Psychiatric: Normal Affect, Normal Mood Skin Exam: Warm, Dry, Intact, Normal Color #1 Interpretation EKG Date: 10/22/20 Time: 15:40 Rhythm: NSR Rate (Beats/Min): 86 [place]: Normal P-Wave: Present QRS: Normal ST-T: Normal QT: Normal [place]/PQ Interval: 149 Comparison: NA - No Prior EKG EKG Interpretation Comments: normal EKG Course - Vital Signs Last Recorded V/S: Last Vital Signs Temp 97.6 F 10/22/20 15:36 Pulse 94 10/22/20 15:36 Resp 16 10/22/20 15:36 BP 121/88 10/22/20 15:36 Pulse Ox 99 10/22/20 15:36 - Orders/Labs/Meds Orders: Active Orders 24 hr Category Date Time Status EKG Documentation Completion [RC] STAT Care 10/22/20 15:57 Active Sodium Chloride 0.9% [Saline Flush] Med 10/22/20 15:57 Active 10 ml FLUSH ASDIRECTED PRN Sodium Chloride 0.9% [Saline Flush] Med 10/22/20 15:57 Active 2.5 ml FLUSH ASDIRECTED PRN Saline Lock Insert [OM.PC] Stat Oth 10/22/20 15:57 Ordered Medication Orders Sodium Chloride (Sodium Chloride 0.9% 10 Ml Syringe) 10 ml FLUSH ASDIRECTED PRN PRN Reason: Keep Vein Open Last Admin: 10/22/20 16:11 Dose: 10 ml Documented by: JULIANA Sodium Chloride (Sodium Chloride 0.9% 2.5 Ml Syringe) 2.5 ml FLUSH ASDIRECTED PRN PRN Reason: Keep Vein Open Last Admin: 10/22/20 16:11 Dose: 2.5 ml Documented by: JULIANA Labs: Laboratory Tests 10/22/20 10/22/20 10/22/20 Range/Units 15:35 15:45 15:45 WBC 8.32 (4.0-11.0) K/uL RBC 5.02 (4.30-5.90) M/uL Hgb 14.6 (12.0-16.0) g/dL Hct 42.4 (36.0-46.0) % MCV 84.5 (80.0-98.0) fL MCH 29.1 (27.0-32.0) pg MCHC 34.4 (31.0-37.0) g/dL RDW Std Deviation 45.7 (28.0-62.0) fl RDW Coeff of Jayme 15 (11.0-15.0) % Plt Count 254 (150-400) K/uL MPV 11.20 (7.40-12.00) fL Neut % (Auto) 60.9 (48.0-80.0) % Lymph % (Auto) 32.7 (16.0-40.0) % [place] % (Auto) 4.6 (0.0-15.0) % Eos % (Auto) 1.6 (0.0-7.0) % Baso % (Auto) 0.2 (0.0-1.5) % Neut # (Auto) 5.1 (1.4-5.7) K/uL Lymph # (Auto) 2.7 H (0.6-2.4) K/uL [place] # (Auto) 0.4 (0.0-0.8) K/uL Eos # (Auto) 0.1 (0.0-0.7) K/uL Baso # (Auto) 0.0 (0.0-0.1) K/uL Nucleated RBC % 0.0 /100WBC Nucleated RBCs # 0 K/uL D-Dimer, Quantitative (0.0-0.50) mg/L FEU Sodium 140 (136-145) mmol/L Potassium 3.7 (3.5-5.1) mmol/L Chloride 102 (98-107) mmol/L Carbon Dioxide 25.8 (21.0-32.0) mmol/L BUN 11 (7.0-18.0) mg/dL Creatinine 1.1 H (0.6-1.0) mg/dL Est Cr Clr Drug Dosing 70.01 mL/min Estimated GFR (MDRD) 58.3 ml/min Glucose 89 (74-106) mg/dL Calcium 8.8 (8.5-10.1) mg/dL Total Bilirubin 0.7 (0.2-1.0) mg/dL AST 33 (15-37) IU/L ALT 68 H (14-63) IU/L Alkaline Phosphatase 74 (46-116) U/L Troponin I (0.000-0.056) ng/mL Total Protein 8.2 (6.4-8.2) g/dL Albumin 3.7 (3.4-5.0) g/dL Globulin 4.5 H (2.6-4.0) g/dL Albumin/Globulin Ratio 0.8 L (0.9-1.6) HCG, Qual NEGATIVE (NEG) 10/22/20 10/22/20 Range/Units 15:45 16:20 WBC (4.0-11.0) K/uL RBC (4.30-5.90) M/uL Hgb (12.0-16.0) g/dL Hct (36.0-46.0) % MCV (80.0-98.0) fL MCH (27.0-32.0) pg MCHC (31.0-37.0) g/dL RDW Std Deviation (28.0-62.0) fl RDW Coeff of Jayme (11.0-15.0) % Plt Count (150-400) K/uL MPV (7.40-12.00) fL Neut % (Auto) (48.0-80.0) % Lymph % (Auto) (16.0-40.0) % [place] % (Auto) (0.0-15.0) % Eos % (Auto) (0.0-7.0) % Baso % (Auto) (0.0-1.5) % Neut # (Auto) (1.4-5.7) K/uL Lymph # (Auto) (0.6-2.4) K/uL [place] # (Auto) (0.0-0.8) K/uL Eos # (Auto) (0.0-0.7) K/uL Baso # (Auto) (0.0-0.1) K/uL Nucleated RBC % /100WBC Nucleated RBCs # K/uL D-Dimer, Quantitative 0.43 (0.0-0.50) mg/L FEU Sodium (136-145) mmol/L Potassium (3.5-5.1) mmol/L Chloride (98-107) mmol/L Carbon Dioxide (21.0-32.0) mmol/L BUN (7.0-18.0) mg/dL Creatinine (0.6-1.0) mg/dL Est Cr Clr Drug Dosing mL/min Estimated GFR (MDRD) ml/min Glucose (74-106) mg/dL Calcium (8.5-10.1) mg/dL Total Bilirubin (0.2-1.0) mg/dL AST (15-37) IU/L ALT (14-63) IU/L Alkaline Phosphatase (46-116) U/L Troponin I < 0.050 (0.000-0.056) ng/mL Total Protein (6.4-8.2) g/dL Albumin (3.4-5.0) g/dL Globulin (2.6-4.0) g/dL Albumin/Globulin Ratio (0.9-1.6) HCG, Qual (NEG) Meds: Medications Generic Name Dose Route Start Last Admin Trade Name Freq PRN Reason Stop Dose Admin Sodium Chloride 10 ml 10/22/20 15:57 10/22/20 16:11 Sodium Chloride 0.9% 10 Ml Syringe FLUSH 10 ml ASDIRECTED PRN Administration Keep Vein Open Sodium Chloride 2.5 ml 10/22/20 15:57 10/22/20 16:11 Sodium Chloride 0.9% 2.5 Ml Syringe FLUSH 2.5 ml ASDIRECTED PRN Administration Keep Vein Open Discontinued Medications Generic Name Dose Route Start Last Admin Trade Name Ernesto PRN Reason Stop Dose Admin Aspirin 324 mg 10/22/20 15:57 10/22/20 16:11 Aspirin 81 Mg Tab.Chew PO 10/22/20 15:58 324 mg ONETIME ONE Administration Al Hydroxide/Mg Hydroxide 15 0 ml 10/22/20 15:57 10/22/20 16:11 ml/ Lidocaine HCl 5 ml PO 10/22/20 15:58 1 each ONETIME ONE Administration - Re-Assessments/Exams Free Text/Narrative Re-Assessment/Exam: 10/22/20 17:17 Patient's labs are unremarkable. Chest x-ray is normal. She is feeling better. Will discharge with PMD follow-up. Departure - Departure Time of Disposition: 17:18 Disposition: Home, Self-Care 01 Condition: Good Clinical Impression: Chest pain Qualifiers: Chest pain type: unspecified Qualified Code(s): R07.9 - Chest pain, unspecified - Discharge Information Instructions: Nonspecific Chest Pain, Adult Additional Instructions: The following information is given to patients seen in the emergency department who are being discharged to home. This information is to outline your options for follow-up care. We provide all patients seen in our emergency department with a follow-up referral. The need for follow-up, as well as the timing and circumstances, are variable depending upon the specifics of your emergency department visit. If you don't have a primary care physician on staff, we will provide you with a referral. We always advise you to contact your personal physician following an emergency department visit to inform them of the circumstance of the visit and for follow-up with them and/or the need for any referrals to a consulting specialist. The emergency department will also refer you to a specialist when appropriate. This referral assures that you have the opportunity for follow-up care with a specialist. All of these measure are taken in an effort to provide you with optimal care, which includes your follow-up. Under all circumstances we always encourage you to contact your private physician who remains a resource for coordinating your care. When calling for follow-up care, please make the office aware that this follow-up is from your recent emergency room visit. If for any reason you are refused follow-up, please contact the [facility] Department at and asked to speak to the emergency department charge nurse. Please follow up with your primary care physician. If you do not have a primary care physician, see below: [facility] [address] [place] [address] My [facility] [address] [place] [address] [facility] [address] [place] [address] Sepsis Event Note (ED) - Focused Exam Vital Signs: Vital Signs Temp Pulse Resp BP Pulse Ox 10/22/20 15:36 97.6 F 94 16 121/88 99 - My Orders Last 24 Hours: My Active Orders 10/22/20 15:57 EKG Documentation Completion [RC] STAT Sodium Chloride 0.9% [Saline Flush] 10 ml FLUSH ASDIRECTED PRN Sodium Chloride 0.9% [Saline Flush] 2.5 ml FLUSH ASDIRECTED PRN Saline Lock Insert [OM.PC] Stat - Assessment/Plan Last 24 Hours: My Active Orders 10/22/20 15:57 EKG Documentation Completion [RC] STAT Sodium Chloride 0.9% [Saline Flush] 10 ml FLUSH ASDIRECTED PRN Sodium Chloride 0.9% [Saline Flush] 2.5 ml FLUSH ASDIRECTED PRN Saline Lock Insert [OM.PC] Stat
[2020-10-22] MEDS ORDERED: Sodium Chloride 0.9% 10 ML Syringe FLUSH PRN (15:57)
[2020-10-22] MEDS ORDERED: Aspirin 81 MG Tab.Chew PO ONE (15:57)
[2020-10-22] MEDS ORDERED: Alum Hydrox/Mag Hydrox/Simeth 15 ML, Lidocaine 2% 5 ML PO ONE ×2 (15:57)
[2020-10-22] MEDS ORDERED: Sodium Chloride 0.9% 2.5 ML Syringe FLUSH PRN (15:57)
[2020-10-22 16:22] LABS: CARBON DIOXIDE,CO2 25.8 mmol/L (21.0-32.0); POTASSIUM,K 3.7 mmol/L (3.5-5.1)
--- NOTE | 2020-10-22 17:11 | CR ---
For Patients: As a result of the Century Cures Act, medical imaging exams and procedure reports are released immediately into your electronic medical record. You may view this report before your referring provider. If you have questions, please contact your health care provider. INDICATION: Chest pain TECHNIQUE: Chest 1 view COMPARISON: None FINDINGS: Cardiovascular and mediastinum: Heart size and vasculature are normal in caliber and appearance. Lungs and pleural spaces: Lungs are clear. No sign of infiltrate or mass. No sign of pleural effusion. No pneumothorax. Bones and soft tissues: No significant findings. IMPRESSION: No acute or significant findings. Dictated by Jose Martin Montana MD @ 10/22/2020 5:10:[address] Jose Martin Montana @ Oct 22 2020 5:10PM
== END 2020-10-22 17:30 | disposition home or self-care (01) ==
LOC: MW.ED 15:36
DX: R07.9 Chest pain, unspecified (principal); Z91.040 Latex allergy status
CPT/HCPCS: 36415; 71045; 80053; 84484; 84703; 85025; 85379; 93005; 99285; A9270

== ENCOUNTER 2022-06-02 21:44 | Emergency (ER) | payer BC ==
[2022-06-02] MEDS ORDERED: Morphine 4 MG/ML Syringe IVPUSH ONE (22:14)
[2022-06-02] MEDS ORDERED: Sodium Chloride 0.9% 1,000 ML IV ONE (22:14)
[2022-06-02] MEDS ORDERED: Ondansetron 4 MG/2 ML SDV IVPUSH ONE (22:14)
[2022-06-02] MEDS ORDERED: diphenhydrAMINE 50 MG/ML SDV IVPUSH ONE (22:33)
[2022-06-02 22:35] LABS: CARBON DIOXIDE,CO2 25.4 mmol/L (21.0-32.0); POTASSIUM,K 3.4 mmol/L (3.5-5.1)
[2022-06-02 22:59] LABS: CORONAVIRUS COVID-19 NAA NEGATIVE (NEGATIVE); INFLUENZA A NAA NEGATIVE (NEGATIVE); INFLUENZA B NAA NEGATIVE (NEGATIVE)
[2022-06-02] MEDS ORDERED: Alum Hydro/Mag Hydro/Simeth XS 15 ML, Lidocaine 2% 5 ML PO ONE ×2 (23:13)
[2022-06-03] MEDS ORDERED: Iopamidol 755 MG/ML 500 ML Multipack Bottle IVPUSH STA (00:43)
== END 2022-06-03 01:54 | disposition home or self-care (01) ==
LOC: MW.ED 21:44
DX: R07.89 Other chest pain (principal); M79.81 Nontraumatic hematoma of soft tissue; Z91.040 Latex allergy status; Z88.8 Allergy status to other drugs, medicaments and biological substances; Z20.822 Contact with and (suspected) exposure to COVID-19
CPT/HCPCS: 0240U; 36415; 71045; 71275; 80053; 83735; 84484; 84703; 85025; 85379; 85610; 85730; 93005; 96361; 96374; 96375; 99285; A9270; J1200; J2270; J2405; J3360; J7030; Q9967